=== PATIENT | female | born 1965 | race Two or more races ===

== ENCOUNTER → 2016-07-03 | Outpatient (CLI) | payer OTHER | LOC: BRMIMAGING 13:28 | DX: Z12.31 Encounter for screening mammogram for malignant neoplasm of breast (principal) | CPT/HCPCS: G0202 ==

== ENCOUNTER → 2017-07-20 | Outpatient (CLI) | payer OTHER | LOC: BRMIMAGING 15:06 | DX: Z12.31 Encounter for screening mammogram for malignant neoplasm of breast (principal) ==